=== PATIENT | male | born 1985 | race Caucasian/White ===

== ENCOUNTER 2017-05-25 18:55 | Emergency (ER) | payer SELFPAY ==
[~2017-05-25] VITALS: Ht 167.6 cm; Wt 75.9 kg
[2017-05-25 21:32] VITALS: BP 120/88
== END 2017-05-25 21:32 | disposition home or self-care (01) ==
LOC: ED 18:55
PROC: 3E023NZ Introduction of Analgesics, Hypnotics, Sedatives into Muscle, Percutaneous Approach (ICD-10-PCS; principal; 2017-05-25)
DX: J06.9 Acute upper respiratory infection, unspecified (principal)
CPT/HCPCS: J1885